=== PATIENT | male | born 1935 | race Caucasian/White ===

== ENCOUNTER 2018-04-22 08:50 | Observation (INO) | payer BC, OTHER ==
[2018-04-22 09:24] LABS: ADD MAN DIFF? NO
[2018-04-22 09:33] LABS: WHITE BLOOD COUNT 5.8 10^3/ul (4.8-10.8)
[2018-04-22 09:33] LABS: BASOPHILS % 0.3 % (0.0-2.0); EOSINOPHILS # 0.3 10^3/ul (0.0-0.5); EOSINOPHILS % 5.9 % (0.0-7.0); HEMATOCRIT 37.1 % (42.0-52.0); LYMPHOCYTES # 1.3 10^3/ul (0.8-2.9); LYMPHOCYTES % 22.2 % (15.0-51.0); MEAN CORPUSCULAR HEMOGLOBIN 31.2 pg (29.0-33.0); MEAN CORPUSCULAR HGB CONC 32.3 g/dl (32.0-37.0); MEAN CORPUSCULAR VOLUME 96.4 fl (82.0-101.0); MEAN PLATELET VOLUME 10.7 fl (7.4-10.4); MONOCYTE # 0.4 10^3/ul (0.3-0.9); MONOCYTES % 6.6 % (0.0-11.0); NEUTROPHIL # 3.8 10^3/ul (1.6-7.5); NEUTROPHILS % 64.7 % (39.0-77.0); PLATELET COUNT 165 10^3/UL (140-415); RED BLOOD COUNT 3.85 10^6/ul (4.70-6.10); RED CELL DISTRIBUTION WIDTH 13.6 % (11.5-14.5)
[2018-04-22] MEDS: SOD CHLORIDE 0.9% 150 ML IV (09:46)
[2018-04-22 09:54] LABS: ALANINE AMINOTRANSFERASE 26 IU/L (13-69); ALBUMIN 3.2 g/dl (3.3-4.9); ALBUMIN/GLOBULIN RATIO 1.18; ALKALINE PHOSPHATASE 68 IU/L (42-121); ANION GAP 11 (8-16); ASPARTATE AMINO TRANSFERASE 20 IU/L (15-46); BILIRUBIN,INDIRECT 0.6 mg/dl (0-1.1); BILIRUBIN,TOTAL 0.6 mg/dl (0.2-1.3); BLOOD UREA NITROGEN 21 mg/dl (7-20); CALCIUM 8.7 mg/dl (8.4-10.2); CARBON DIOXIDE 33 mmol/L (21-31); CHLORIDE 104 mmol/L (97-110); CREATININE 1.08 mg/dl (0.61-1.24); GLUCOSE 146 mg/dl (70-220); SODIUM 144 mmol/L (135-144); TOTAL PROTEIN 5.9 g/dl (6.1-8.1)
[2018-04-22 10:03] LABS: INR 1.15; PROTIME 14.9 Sec (11.9-14.9); PT RATIO 1.2
[2018-04-22 10:04] LABS: PARTIAL THROMBOPLASTIN TIME 35.1 Sec (25.0-35.0)
[2018-04-22 10:18] LABS: TROPONIN-I < 0.012 ng/ml (0.000-0.120)
[2018-04-22] MEDS ORDERED: ONDANSETRON 4 MG INJ IV ×2 (13:30→15:30)
[2018-04-22] MEDS ORDERED: ACETAMINOPHEN 325 MG TAB PO ×2 (13:30→15:30)
[2018-04-22] MEDS ORDERED: morphine 2 MG INJ IV (15:30)
[2018-04-22] MEDS ORDERED: BISACODYL 10 MG SUPP PR (15:30)
[2018-04-22] MEDS ORDERED: MAGNESIUM HYDROXIDE 30ML CUP PO (15:30)
[2018-04-22] MEDS ORDERED: DOCUSATE SODIUM 100 MG CAP PO (15:30)
[2018-04-22] MEDS ORDERED: ACETAMINOPHEN 650 MG SUPP PR (15:30)
[2018-04-22] MEDS ORDERED: HYDROCODONE/APAP (5/325) TAB PO ×2 (15:30)
[2018-04-22] MEDS ORDERED: NACL 0.9% 3 ML SYG IV (15:30)
[2018-04-22] MEDS: SOD CHLORIDE 0.9% 1,000 ML IV (16:41)
[2018-04-22] MEDS: TAMSULOSIN (SR) 0.4 MG CAP PO (21:20)
[2018-04-22] MEDS: MIRTAZAPINE 15 MG TAB PO (21:20)
[2018-04-23 05:12] LABS: ADD MAN DIFF? NO
[2018-04-23] MEDS: SOD CHLORIDE 0.9% 1,000 ML IV (05:24)
[2018-04-23 05:27] LABS: WHITE BLOOD COUNT 6.7 10^3/ul (4.8-10.8)
[2018-04-23 05:27] LABS: BASOPHILS % 0.4 % (0.0-2.0); EOSINOPHILS # 0.5 10^3/ul (0.0-0.5); EOSINOPHILS % 7.3 % (0.0-7.0); HEMOGLOBIN 12.1 g/dl (14.0-18.0); LYMPHOCYTES # 1.5 10^3/ul (0.8-2.9); LYMPHOCYTES % 22.7 % (15.0-51.0); MEAN CORPUSCULAR HEMOGLOBIN 31.1 pg (29.0-33.0); MEAN CORPUSCULAR HGB CONC 32.7 g/dl (32.0-37.0); MEAN CORPUSCULAR VOLUME 95.1 fl (82.0-101.0); MEAN PLATELET VOLUME 10.8 fl (7.4-10.4); MONOCYTE # 0.5 10^3/ul (0.3-0.9); MONOCYTES % 7.6 % (0.0-11.0); NEUTROPHIL # 4.1 10^3/ul (1.6-7.5); NEUTROPHILS % 61.7 % (39.0-77.0); PLATELET COUNT 162 10^3/UL (140-415); RED BLOOD COUNT 3.89 10^6/ul (4.70-6.10); RED CELL DISTRIBUTION WIDTH 13.2 % (11.5-14.5)
[2018-04-23 05:39] LABS: HEMOGLOBIN A1C 5.6 % (0-5.9)
[2018-04-23 05:43] LABS: IRON 57 ug/dl (35-150)
[2018-04-23 05:50] LABS: ALANINE AMINOTRANSFERASE 27 IU/L (13-69); ALBUMIN 2.9 g/dl (3.3-4.9); ALBUMIN/GLOBULIN RATIO 1.03; ALKALINE PHOSPHATASE 70 IU/L (42-121); ANION GAP 13 (8-16); ASPARTATE AMINO TRANSFERASE 19 IU/L (15-46); BILIRUBIN,INDIRECT 0.7 mg/dl (0-1.1); BILIRUBIN,TOTAL 0.7 mg/dl (0.2-1.3); BLOOD UREA NITROGEN 17 mg/dl (7-20); CALCIUM 8.8 mg/dl (8.4-10.2); CARBON DIOXIDE 31 mmol/L (21-31); CHLORIDE 103 mmol/L (97-110); CHOL/HDL RATIO 2.4 RATIO; CHOLESTEROL 77 mg/dl (100-200); CREATININE 0.98 mg/dl (0.61-1.24); GLUCOSE 76 mg/dl (70-220); HDL CHOLESTEROL 31 mg/dl (31-75); LDL CHOLESTEROL,CALCULATED 32 mg/dl; MAGNESIUM 1.7 mg/dl (1.7-2.5); POTASSIUM 3.9 mmol/L (3.5-5.1); SODIUM 143 mmol/L (135-144); TOTAL PROTEIN 5.7 g/dl (6.1-8.1); TRIGLYCERIDES 68 mg/dl (0-149)
[2018-04-23 05:52] LABS: % IRON SATURATION 31 % SAT (22-52); TOTAL IRON BINDING CAPACITY 183 ug/dl (241-421)
[2018-04-23 06:00] LABS: FREE THYROXINE INDEX (Calc) 2.68 ug/ml (0.65-3.89); T3 UPTAKE 43.2 % (23.5-40.5); T4 (THYROXINE) 6.2 ug/dl (5.5-11.0)
[2018-04-23] MEDS: PANTOPRAZOLE 40 MG INJ IV (06:35)
[2018-04-23] MEDS: OLANZAPINE 5 MG TAB PO (10:00)
[2018-04-23] MEDS: DONEPEZIL 5 MG TAB PO (10:00)
[2018-04-23] MEDS: POLYETHYLENE GLYCOL 17 GM PACKET GTB (10:00)
== END 2018-04-23 12:26 ==
LOC: E/R 08:50 → MS1 15:22
DX: E60 Dietary zinc deficiency (principal); G93.49 Other encephalopathy; F03.90 Unspecified dementia, unspecified severity, without behavioral disturbance, psychotic disturbance, mood disturbance, and anxiety; D50.0 Iron deficiency anemia secondary to blood loss (chronic); K59.00 Constipation, unspecified; I10 Essential (primary) hypertension
CPT/HCPCS: 36415; 71045; 74176; 80053; 80061; 83036; 83540; 83735; 84100; 84436; 84443; 84479; 84484; 85025; 85610; 85730; 93005; 93306; 99285-25

== ENCOUNTER 2019-04-23 07:04 | Inpatient (IN) | payer BC ==
[2019-04-23 07:42] LABS: ADD MAN DIFF? NO
[2019-04-23 07:43] LABS: WHITE BLOOD COUNT 12.4 10^3/ul (4.8-10.8)
[2019-04-23 07:43] LABS: BASOPHILS % 0.3 % (0.0-2.0); EOSINOPHILS % 0.3 % (0.0-7.0); HEMATOCRIT 41.3 % (42.0-52.0); HEMOGLOBIN 13.6 g/dl (14.0-18.0); LYMPHOCYTES # 1.3 10^3/ul (0.8-2.9); LYMPHOCYTES % 10.8 % (15.0-51.0); MEAN CORPUSCULAR HEMOGLOBIN 30.8 pg (29.0-33.0); MEAN CORPUSCULAR HGB CONC 32.9 g/dl (32.0-37.0); MEAN CORPUSCULAR VOLUME 93.4 fl (82.0-101.0); MEAN PLATELET VOLUME 10.2 fl (7.4-10.4); MONOCYTES % 7.8 % (0.0-11.0); NEUTROPHILS % 80.5 % (39.0-77.0); PLATELET COUNT 179 10^3/UL (140-415); RED BLOOD COUNT 4.42 10^6/ul (4.70-6.10); RED CELL DISTRIBUTION WIDTH 13.6 % (11.5-14.5)
[2019-04-23 08:00] LABS: ANION GAP 9 (5-13); BLOOD UREA NITROGEN 22 mg/dl (7-20); CALCIUM 9.6 mg/dl (8.4-10.2); CARBON DIOXIDE 28 mmol/L (21-31); CHLORIDE 108 mmol/L (97-110); CREATININE 1.49 mg/dl (0.61-1.24); GLUCOSE 101 mg/dl (70-220); POTASSIUM 4.4 mmol/L (3.5-5.1); SODIUM 145 mmol/L (135-144)
[2019-04-23 08:24] LABS: TROPONIN-I 0.134 ng/ml (0.000-0.120)
[2019-04-23 08:45] LABS: INR 1.06; PARTIAL THROMBOPLASTIN TIME 28.6 Sec (23.0-35.0); PROTIME 13.9 Sec (11.9-14.9); PT RATIO 1.1
[2019-04-23] MEDS: ASPIRIN 325 MG TAB PO (09:12)
[2019-04-23] MEDS ORDERED: ACETAMINOPHEN 325 MG TAB PO (09:30)
[2019-04-23] MEDS ORDERED: ONDANSETRON 4 MG INJ IV ×2 (09:30→10:00)
[2019-04-23] MEDS: SOD CHLORIDE 0.9% 1,000 ML IV ×2 (09:55→12:24)
[2019-04-23] MEDS: FAMOTIDINE 20 MG INJ IV (09:55)
[2019-04-23] MEDS ORDERED: MAGNESIUM HYDROXIDE 30ML CUP PO (10:00)
[2019-04-23] MEDS ORDERED: morphine 2 MG INJ IV (10:00)
[2019-04-23] MEDS ORDERED: BISACODYL 10 MG SUPP PR (10:00)
[2019-04-23] MEDS ORDERED: HYDROCODONE/APAP (5/325) TAB PO (10:00)
[2019-04-23] MEDS ORDERED: NITROGLYCERIN (SL) 0.4 MG TAB SL (10:00)
[2019-04-23] MEDS ORDERED: DOCUSATE SODIUM 100 MG CAP PO (10:00)
[2019-04-23] MEDS ORDERED: NACL 0.9% 3 ML SYG IV (10:00)
[2019-04-23] MEDS ORDERED: ACETAMINOPHEN 650 MG SUPP PR (10:00)
[2019-04-23 12:21] LABS: CREATINE KINASE 797 IU/L (23-200)
[2019-04-23 12:35] LABS: CK INDEX 0.7; CK-MB 5.56 ng/ml (0.0-2.4); TROPONIN-I 0.131 ng/ml (0.000-0.120)
[2019-04-23] MEDS ORDERED: HEPARIN 25000 UNITS/250 ML 250 ML IV (13:00)
[2019-04-23] MEDS ORDERED: HEPARIN 1000 UNITS/ML 10 ML INJ IV ×2 (13:00)
[2019-04-23 13:37] LABS: WHITE BLOOD COUNT 10.5 10^3/ul (4.8-10.8)
[2019-04-23 13:37] LABS: ADD MAN DIFF? NO; BASOPHILS % 0.4 % (0.0-2.0); EOSINOPHILS % 0.4 % (0.0-7.0); HEMATOCRIT 39.7 % (42.0-52.0); HEMOGLOBIN 13.4 g/dl (14.0-18.0); LYMPHOCYTES # 1.6 10^3/ul (0.8-2.9); LYMPHOCYTES % 14.7 % (15.0-51.0); MEAN CORPUSCULAR HEMOGLOBIN 30.8 pg (29.0-33.0); MEAN CORPUSCULAR HGB CONC 33.8 g/dl (32.0-37.0); MEAN CORPUSCULAR VOLUME 91.3 fl (82.0-101.0); MEAN PLATELET VOLUME 10.8 fl (7.4-10.4); MONOCYTE # 0.8 10^3/ul (0.3-0.9); MONOCYTES % 7.9 % (0.0-11.0); NEUTROPHILS % 76.2 % (39.0-77.0); PLATELET COUNT 182 10^3/UL (140-415); RED BLOOD COUNT 4.35 10^6/ul (4.70-6.10); RED CELL DISTRIBUTION WIDTH 13.7 % (11.5-14.5)
[2019-04-23 13:56] LABS: INR 1.13; PROTIME 14.6 Sec (11.9-14.9); PT RATIO 1.1
[2019-04-23 13:57] LABS: PARTIAL THROMBOPLASTIN TIME 30.6 Sec (23.0-35.0)
[2019-04-23] MEDS: HEPARIN 5,000 UNIT/1 ML VIAL SC ×2 (15:19→21:41)
[2019-04-23 15:54] LABS: CREATINE KINASE 914 IU/L (23-200)
[2019-04-23 16:07] LABS: CK INDEX 0.6; CK-MB 5.49 ng/ml (0.0-2.4); TROPONIN-I 0.099 ng/ml (0.000-0.120)
[2019-04-23] MEDS: MIRTAZAPINE 15 MG TAB PO (21:34)
[2019-04-23] MEDS: TAMSULOSIN (SR) 0.4 MG CAP PO (21:35)
[2019-04-24] MEDS: SOD CHLORIDE 0.9% 1,000 ML IV ×3 (02:08→22:40)
[2019-04-24] MEDS: HEPARIN 5,000 UNIT/1 ML VIAL SC ×3 (05:40→22:53)
[2019-04-24 05:46] LABS: ADD MAN DIFF? NO
[2019-04-24 06:33] LABS: ALANINE AMINOTRANSFERASE 28 IU/L (13-69); ALBUMIN 3.4 g/dl (3.3-4.9); ALBUMIN/GLOBULIN RATIO 1.03; ALKALINE PHOSPHATASE 77 IU/L (42-121); ANION GAP 7 (5-13); ASPARTATE AMINO TRANSFERASE 49 IU/L (15-46); BILIRUBIN,INDIRECT 1.6 mg/dl (0-1.1); BILIRUBIN,TOTAL 1.6 mg/dl (0.2-1.3); BLOOD UREA NITROGEN 20 mg/dl (7-20); CALCIUM 8.8 mg/dl (8.4-10.2); CARBON DIOXIDE 25 mmol/L (21-31); CHLORIDE 110 mmol/L (97-110); CHOL/HDL RATIO 2.5 RATIO; CHOLESTEROL 101 mg/dl (100-200); CREATININE 1.27 mg/dl (0.61-1.24); GLUCOSE 86 mg/dl (70-220); HDL CHOLESTEROL 40 mg/dl (31-75); LDL CHOLESTEROL,CALCULATED 47 mg/dl; PHOSPHORUS 3.4 mg/dl (2.5-4.9); POTASSIUM 4.1 mmol/L (3.5-5.1); SODIUM 142 mmol/L (135-144); TOTAL PROTEIN 6.7 g/dl (6.1-8.1); TRIGLYCERIDES 68 mg/dl (0-149)
[2019-04-24 06:37] LABS: HEMOGLOBIN A1C 5.1 % (0-5.9)
[2019-04-24 06:47] LABS: FREE THYROXINE INDEX (Calc) 3.12 ug/ml (0.65-3.89); T3 UPTAKE 40.5 % (23.5-40.5); T4 (THYROXINE) 7.7 ug/dl (5.5-11.0)
[2019-04-24] MEDS: OLANZAPINE 5 MG TAB PO (08:58)
[2019-04-24] MEDS: FAMOTIDINE 20 MG INJ IV (08:58)
[2019-04-24] MEDS: DONEPEZIL 5 MG TAB PO (08:58)
[2019-04-24 09:32] LABS: ADD UMIC NO; UR ASCORBIC ACID NEGATIVE (NEGATIVE); UR BILIRUBIN (Dip) NEGATIVE (NEGATIVE); UR BLOOD (Dip) NEGATIVE (NEGATIVE); UR CLARITY CLEAR (CLEAR); UR COLOR YELLOW (YELLOW); UR GLUCOSE (Dip) NEGATIVE (NEGATIVE); UR KETONES (Dip) TRACE mg/dL (NEGATIVE); UR LEUKOCYTE ESTERASE (Dip) NEGATIVE Leu/ul (NEGATIVE); UR NITRITE (Dip) NEGATIVE (NEGATIVE); UR SPECIFIC GRAVITY (Dip) 1.017 (1.003-1.030); UR TOTAL PROTEIN (Dip) NEGATIVE (NEGATIVE); UR UROBILINOGEN (Dip) NEGATIVE (NEGATIVE)
[2019-04-24 10:11] LABS: BASOPHILS % 0.6 % (0.0-2.0); EOSINOPHILS # 0.2 10^3/ul (0.0-0.5); EOSINOPHILS % 3.3 % (0.0-7.0); HEMATOCRIT 37.7 % (42.0-52.0); HEMOGLOBIN 12.5 g/dl (14.0-18.0); LYMPHOCYTES # 1.4 10^3/ul (0.8-2.9); MEAN CORPUSCULAR HEMOGLOBIN 31.3 pg (29.0-33.0); MEAN CORPUSCULAR HGB CONC 33.2 g/dl (32.0-37.0); MEAN CORPUSCULAR VOLUME 94.5 fl (82.0-101.0); MONOCYTE # 0.6 10^3/ul (0.3-0.9); NEUTROPHIL # 4.8 10^3/ul (1.6-7.5); NEUTROPHILS % 67.8 % (39.0-77.0); PLATELET COUNT 169 10^3/UL (140-415); RED BLOOD COUNT 3.99 10^6/ul (4.70-6.10)
[2019-04-24] MEDS: MIRTAZAPINE 15 MG TAB PO (22:35)
[2019-04-24] MEDS: TAMSULOSIN (SR) 0.4 MG CAP PO (22:35)
[2019-04-25] MEDS: HEPARIN 5,000 UNIT/1 ML VIAL SC ×3 (06:25→22:07)
[2019-04-25] MEDS: FAMOTIDINE 20 MG INJ IV (10:03)
[2019-04-25] MEDS: ASPIRIN 81 MG TAB PO (10:03)
[2019-04-25] MEDS: DONEPEZIL 5 MG TAB PO (10:04)
[2019-04-25] MEDS: OLANZAPINE 5 MG TAB PO (10:05)
[2019-04-25] MEDS: SOD CHLORIDE 0.9% 1,000 ML IV ×2 (10:37→21:52)
[2019-04-25 15:24] LABS: CREATINE KINASE 511 IU/L (23-200)
[2019-04-25] MEDS: TAMSULOSIN (SR) 0.4 MG CAP PO (21:46)
[2019-04-25] MEDS: ATORVASTATIN 10 MG TAB PO (21:46)
[2019-04-25] MEDS: MIRTAZAPINE 15 MG TAB PO (21:47)
[2019-04-26 06:27] LABS: ADD MAN DIFF? NO
[2019-04-26] MEDS: HEPARIN 5,000 UNIT/1 ML VIAL SC ×3 (06:41→21:54)
[2019-04-26] MEDS: SOD CHLORIDE 0.9% 1,000 ML IV (06:43)
[2019-04-26 06:49] LABS: BASOPHILS % 0.5 % (0.0-2.0); EOSINOPHILS # 0.3 10^3/ul (0.0-0.5); EOSINOPHILS % 5.2 % (0.0-7.0); HEMATOCRIT 36.2 % (42.0-52.0); HEMOGLOBIN 12.3 g/dl (14.0-18.0); LYMPHOCYTES # 1.5 10^3/ul (0.8-2.9); LYMPHOCYTES % 22.6 % (15.0-51.0); MEAN CORPUSCULAR HEMOGLOBIN 31.4 pg (29.0-33.0); MEAN CORPUSCULAR VOLUME 92.3 fl (82.0-101.0); MEAN PLATELET VOLUME 10.9 fl (7.4-10.4); MONOCYTE # 0.6 10^3/ul (0.3-0.9); MONOCYTES % 8.5 % (0.0-11.0); NEUTROPHIL # 4.2 10^3/ul (1.6-7.5); NEUTROPHILS % 62.9 % (39.0-77.0); PLATELET COUNT 175 10^3/UL (140-415); RED BLOOD COUNT 3.92 10^6/ul (4.70-6.10); RED CELL DISTRIBUTION WIDTH 13.4 % (11.5-14.5)
[2019-04-26 06:49] LABS: WHITE BLOOD COUNT 6.6 10^3/ul (4.8-10.8)
[2019-04-26 07:19] LABS: ANION GAP 7 (5-13); BLOOD UREA NITROGEN 16 mg/dl (7-20); CALCIUM 8.7 mg/dl (8.4-10.2); CARBON DIOXIDE 25 mmol/L (21-31); CHLORIDE 110 mmol/L (97-110); CREATININE 1.28 mg/dl (0.61-1.24); GLUCOSE 81 mg/dl (70-220); POTASSIUM 4.2 mmol/L (3.5-5.1); SODIUM 142 mmol/L (135-144)
[2019-04-26] MEDS: ASPIRIN 81 MG TAB PO (09:00)
[2019-04-26] MEDS: FAMOTIDINE 20 MG TAB PO (11:02)
[2019-04-26] MEDS: OLANZAPINE 5 MG TAB PO (11:02)
[2019-04-26] MEDS: DONEPEZIL 5 MG TAB PO (11:02)
[2019-04-26] MEDS: ACETAMINOPHEN 325 MG TAB PO (12:52)
[2019-04-26] MEDS: TAMSULOSIN (SR) 0.4 MG CAP PO (21:52)
[2019-04-26] MEDS: MIRTAZAPINE 15 MG TAB PO (21:52)
[2019-04-26] MEDS: ATORVASTATIN 10 MG TAB PO (21:52)
[2019-04-27] MEDS: HEPARIN 5,000 UNIT/1 ML VIAL SC ×3 (06:14→22:05)
[2019-04-27] MEDS: FAMOTIDINE 20 MG TAB PO (09:12)
[2019-04-27] MEDS: OLANZAPINE 5 MG TAB PO (09:12)
[2019-04-27] MEDS: ASPIRIN 81 MG TAB PO (09:12)
[2019-04-27] MEDS: DONEPEZIL 5 MG TAB PO (09:12)
[2019-04-27] MEDS: MIRTAZAPINE 15 MG TAB PO (22:03)
[2019-04-27] MEDS: ATORVASTATIN 10 MG TAB PO (22:03)
[2019-04-27] MEDS: TAMSULOSIN (SR) 0.4 MG CAP PO (22:03)
[2019-04-28 05:43] LABS: ADD MAN DIFF? NO
[2019-04-28 05:47] LABS: BASOPHILS % 0.4 % (0.0-2.0); EOSINOPHILS # 0.4 10^3/ul (0.0-0.5); EOSINOPHILS % 5.7 % (0.0-7.0); HEMATOCRIT 40.3 % (42.0-52.0); HEMOGLOBIN 13.7 g/dl (14.0-18.0); LYMPHOCYTES % 26.8 % (15.0-51.0); MEAN CORPUSCULAR HEMOGLOBIN 30.9 pg (29.0-33.0); MEAN PLATELET VOLUME 10.5 fl (7.4-10.4); MONOCYTE # 0.7 10^3/ul (0.3-0.9); MONOCYTES % 10.1 % (0.0-11.0); NEUTROPHIL # 4.2 10^3/ul (1.6-7.5); NEUTROPHILS % 56.6 % (39.0-77.0); PLATELET COUNT 211 10^3/UL (140-415); RED BLOOD COUNT 4.43 10^6/ul (4.70-6.10); RED CELL DISTRIBUTION WIDTH 13.4 % (11.5-14.5)
[2019-04-28 05:47] LABS: WHITE BLOOD COUNT 7.4 10^3/ul (4.8-10.8)
[2019-04-28 06:09] LABS: ANION GAP 8 (5-13); BLOOD UREA NITROGEN 16 mg/dl (7-20); CALCIUM 9.5 mg/dl (8.4-10.2); CARBON DIOXIDE 28 mmol/L (21-31); CHLORIDE 108 mmol/L (97-110); CREATININE 1.25 mg/dl (0.61-1.24); GLUCOSE 99 mg/dl (70-220); SODIUM 144 mmol/L (135-144)
[2019-04-28] MEDS: HEPARIN 5,000 UNIT/1 ML VIAL SC ×2 (06:17→15:16)
[2019-04-28] MEDS: DONEPEZIL 5 MG TAB PO (09:26)
[2019-04-28] MEDS: ASPIRIN 81 MG TAB PO (09:26)
[2019-04-28] MEDS: OLANZAPINE 5 MG TAB PO (09:26)
[2019-04-28] MEDS: FAMOTIDINE 20 MG TAB PO (09:26)
== END 2019-04-28 16:46 | disposition home or self-care (01) | DRG 312 ==
LOC: E/R 07:04 → 2NE 04-26 14:01 → 6WM 09:08
PROVIDERS: Internal Medicine
DX: R55 Syncope and collapse (principal); N17.9 Acute kidney failure, unspecified; F03.90 Unspecified dementia, unspecified severity, without behavioral disturbance, psychotic disturbance, mood disturbance, and anxiety; I12.9 Hypertensive chronic kidney disease with stage 1 through stage 4 chronic kidney disease, or unspecified chronic kidney disease; N18.9 Chronic kidney disease, unspecified; E78.5 Hyperlipidemia, unspecified; K59.00 Constipation, unspecified; N40.0 Benign prostatic hyperplasia without lower urinary tract symptoms
CPT/HCPCS: 36415; 70450; 71045; 80048; 80053; 80061; 81003; 82550; 82553; 82962; 83036; 83735; 84100; 84436; 84443; 84479; 84484; 85025; 85610; 85730; 87040-91; 87081; 87086; 92526; 92610; 93005; 93306; 93880; 97116; 97162; 97167; 97530; 99285-25; G0378

== ENCOUNTER 2019-06-17 02:39 | Emergency (ER) | payer BC | END 2019-06-17 07:36 | disposition home or self-care (01) | LOC: E/R 02:39 | DX: S01.01XA Laceration without foreign body of scalp, initial encounter (principal); I10 Essential (primary) hypertension; I25.10 Atherosclerotic heart disease of native coronary artery without angina pectoris; W18.30XA Fall on same level, unspecified, initial encounter; Y92.89 Other specified places as the place of occurrence of the external cause; Z79.82 Long term (current) use of aspirin; Z87.891 Personal history of nicotine dependence | CPT/HCPCS: 12002; 70450; 72125; 99284-25 ==